=== PATIENT | male | born 1995 | race American Indian/Alaskan Native ===

== ENCOUNTER 2018-10-25 18:01 | Emergency (ER) | payer OTHER ==
--- NOTE | 2018-10-25 18:23 | ED PDOC ---
Arrival/HPI - General Chief Complaint: Seizure Time Seen by Provider: 10/25/18 18:05 Historian: Patient - History of Present Illness Narrative History of Present Illness (Text): 10/25/18 18:05 Sumit Loja is a 23 year old male, with a past medical history of epilepsy (on Keppra), who presents to the emergency department s/p seizure today. Pt recently returned home from follow-up with [facility] before onset of seizure; pt was found on the ground and sustained abrasions to nose and left back. Pt AAO x 3 but is amnesic for event. Patient denies chest pain, shortness of breath, headache, nausea, vomiting, diarrhea, fever, chills, cough, visual changes, tongue biting, bowel/bladder incontinence or head injury. Time/Duration: Other (today) Symptom Onset: Sudden Symptom Course: Resolved Activities at Onset: Light Context: Home Past Medical History - Provider Review Nursing Documentation Reviewed: Yes - Neurological Hx Seizures: Yes - Psychiatric Hx Substance Use: Yes - Anesthesia Hx Anesthesia: No Hx Anesthesia Reactions: No Hx Malignant Hyperthermia: No Family/Social History - Physician Review Nursing Documentation Reviewed: Yes Family/Social History: No Known Family HX Smoking Status: Never Smoked Hx Alcohol Use: No Hx Substance Use: Yes Substance used: marijuana Allergies/Home Meds Allergies/Adverse Reactions: Allergies No Known Allergies Allergy (Verified 10/25/18 18:11) Review of Systems - Physician Review All systems were reviewed & negative as marked: Yes - Review of Systems Constitutional: absent: Fevers, Other (chills) Eyes: absent: Vision Changes Respiratory: absent: SOB, Cough Gastrointestinal: absent: Abdominal Pain, Diarrhea, Nausea, Vomiting, Other (bowel incontience) Genitourinary Male: absent: Other (bladder incontinence) Neurological: Seizure (no tongue bite). absent: Headache Physical Exam - Systems Exam Head: Present: Atraumatic, Normocephalic Pupils: Present: PERRL Extroacular Muscles: Present: EOMI Conjunctiva: Present: Normal Mouth: Present: Moist Mucous Membranes Nose (External): Present: Abrasion (bridge of nose w/ swelling) Neck: No: MIDLINE TENDERNESS Respiratory/Chest: Present: Clear to Auscultation, Good Air Exchange. No: Respiratory Distress, Accessory Muscle Use, Wheezes, Rales, Rhonchi Cardiovascular: Present: Regular Rate and Rhythm, Normal S1, S2. No: Murmurs, Rub, Gallop Abdomen: Present: Normal Bowel Sounds. No: Tenderness, Distention, Peritoneal Signs, Rebound, Guarding Back: Present: Normal Inspection Upper Extremity: Present: Normal Inspection, Neurovascularly Intact. No: Cyanosis, Edema Lower Extremity: Present: Normal Inspection, Neurovascularly Intact. No: Edema Neurological: Present: GCS=15, CN II-XII Intact, Speech Normal, Motor Func Grossly Intact Skin: Present: Warm, Dry, Normal Color. No: Rashes Psychiatric: Present: Alert, Oriented x 3, Normal Insight, Normal Concentration Medical Decision Making ED Course and Treatment: 10/25/18 18:05 Impression: Pt is a 23 year old male, with a past medical history of epilepsy, who presents to the emergency department s/p seizure earlier today. Differential Diagnosis included but are not limited to: Seizure disorder Plan: -- CT Head w/o Contrast -- CT Maxillofacial w/o Contrast -- EKG -- Reassess and disposition Prior Visits: Notes and results from previous visits were reviewed. Progress Notes: 10/25/18 18:29 Reviewed EKG, shows: Sinus Tachycardia at 104 BPM. RAD. Sign out to Dr Kimbrough at 7pm pending labs, ct head and ct MF. - EKG Interpretation Interpreted by ED Physician: Yes Type: 12 lead EKG - Scribe Statement The provider has reviewed the documentation as recorded by the Scribe Romulo Duran All medical record entries made by the Scribe were at my direction and personally dictated by me. I have reviewed the chart and agree that the record accurately reflects my personal performance of the history, physical exam, medical decision making, and the department course for this patient. I have also personally directed, reviewed, and agree with the discharge instructions and disposition. Disposition/Present on Arrival - Present on Arrival Any Indicators Present on Arrival: No History of DVT/PE: No History of Uncontrolled Diabetes: No Urinary Catheter: No History of Decub. Ulcer: No History Surgical Site Infection Following: None - Disposition Have Diagnosis and Disposition been Completed?: Yes Diagnosis: Seizure, Abrasion Disposition Time: 19:00 Condition: GOOD Forms: [employer] (Greek)
[2018-10-25 18:34] VITALS: TEMP 98.2
[2018-10-25] MEDS ORDERED: TDAP Vaccine 0.5 mL Syr IM ONE (18:50)
[2018-10-25 19:02] LABS: BASO # 0.02 K/mm3 (0.0-2.0); BASO % 0.4 % (0.0-3.0); EOS # 0.7 (0.0-0.7); EOS % 15.3 % (1.5-5.0); HEMOGLOBIN 13.8 g/dL (14.0-18.0); LYMPH # 1.2 (1.2-3.4); LYMPH % 27.4 % (22.0-35.0); MEAN CELL VOLUME 91.4 fl (80.0-105.0); MEAN CORPUSCULAR HEMOGLOBIN 29.8 pg (25.0-35.0); MEAN CORPUSCULAR HGB CONC 32.6 g/dl (31.0-37.0); MEAN PLATELET VOLUME 10.5 fl (7.0-11.0); MONO # 0.3 (0.1-0.6); MONO % 6.9 % (1.0-6.0); RBC 4.63 10^6/uL (3.5-6.1); RED CELL DISTRIBUTION WIDTH 12.8 % (11.5-14.5); WHITE BLOOD COUNT 4.5 10^3/uL (4.5-11.0)
[2018-10-25 19:13] LABS: ALB/GLOB RATIO 1.4 (1.1-1.8); ALBUMIN 4.4 g/dL (3.0-4.8); BLOOD UREA NITROGEN 10 mg/dL (7-21); CALCIUM 9.3 mg/dL (8.4-10.5); GFR NON-AFRICAN AMERICAN > 60
--- NOTE | 2018-10-25 19:26 | CARD ---
APPROVED REPORT Date of service: 10/25/2018 EKG Measurement Heart [id number] <Conclusion> Sinus tachycardia Rightward axis ST elevation, probably due to early repolarization Borderline ECG
[2018-10-25 19:33] LABS: ALT/SGPT 26 U/L (7-56); AST/SGOT 31 U/L (17-59)
--- NOTE | 2018-10-25 19:36 | ED PDOC ---
Physical Exam Vital Signs Reviewed: Yes Vital Signs Temp Pulse Resp BP Pulse Ox 10/25/18 18:34 98.2 F 79 18 128/77 98 Temperature: Afebrile Blood Pressure: Normal Pulse: Regular Respiratory Rate: Normal Appearance: Positive for: Well-Appearing, Non-Toxic, Comfortable Pain Distress: None Mental Status: Positive for: Alert and Oriented X 3 Finger Stick Blood Glucose: 75 Medical Decision Making ED Course and Treatment: 10/25/18 19:35 Patient signed out to me by Dr. Barbosa, pending CT Head and CT Maxillofacial. Patient reports he missed a few doses of his Keppra and resulted in having a seizure after seeing his neurologist today. Patient notes also experiencing pain to upper back region from abrasion that is currently not actively bleeding. Notes also abrasion to bridge of nose, no active bleeding. 10/25/18 21:14 patient is awake and alert and stable for discharge in the company of family. case discussed with dr. nevarez and recommends continuing current dose of keppra. - Lab Interpretations Lab Results: Total Bilirubin 0.4 mg/dL (0.2-1.3) 10/25/18 18:26 AST 31 U/L (17-59) 10/25/18 18:26 ALT 26 U/L (7-56) 10/25/18 18:26 Alkaline Phosphatase 85 U/L (38-126) 10/25/18 18:26 Total Protein 7.6 g/dL (5.8-8.3) 10/25/18 18:26 Albumin 4.4 g/dL (3.0-4.8) 10/25/18 18:26 Globulin 3.2 gm/dL 10/25/18 18:26 Albumin/Globulin Ratio 1.4 (1.1-1.8) 10/25/18 18:26 - RAD Interpretation Narrative RAD Interpretations (Text): 10/25/2018 20:[address] IMPRESSION: No acute intracranial abnormality. Dictator: Romulo Simpson M.D. 10/25/2018 20:[address] IMPRESSION: Sinusitis. Unremarkable maxillofacial CT otherwise. Dictator: Romulo Simpson M.D. Radiology Orders: 10/25/18 18:16 HEAD W/O CONTRAST [CT] Stat 10/25/18 18:17 MAXILLOFACIAL W/O CONTRAST [CT] Stat - Medication Orders Current Medication Orders: Discontinued Medications Tetanus/Reduced Diphtheria/Acell Pertussis (Boostrix Vaccine Inj) 0.5 ml IM .ONCE ONE Stop: 10/25/18 18:51 - Scribe Statement The provider has reviewed the documentation as recorded by the Scribe Romulo Duran All medical record entries made by the Scribe were at my direction and personally dictated by me. I have reviewed the chart and agree that the record accurately reflects my personal performance of the history, physical exam, medical decision making, and the department course for this patient. I have also personally directed, reviewed, and agree with the discharge instructions and disposition. Disposition/Present on Arrival - Present on Arrival Any Indicators Present on Arrival: No History of DVT/PE: No History of Uncontrolled Diabetes: No Urinary Catheter: No History of Decub. Ulcer: No History Surgical Site Infection Following: None - Disposition Have Diagnosis and Disposition been Completed?: Yes Diagnosis: Abrasion, Breakthrough seizure, Head injury Disposition: HOME/ ROUTINE Disposition Time: 21:15 Patient Plan: Discharge Patient Problems: Current Active Problems Problem Status Onset Seizure Acute Abrasion Acute Condition: STABLE Discharge Instructions (ExitCare): Skin Abrasions, Closed Head Injury (DC) Additional Instructions: follow up with your neurologist. call to make a follow up appointment. please do not miss any doses of your seizure medication. Referrals: Zain Nevarez MD [Staff Provider] - Follow up with primary Forms: [employer] (Slovak), WORK NOTE
[2018-10-25] MEDS ORDERED: Bacitracin 500 Units/gm Oint Foilpak UD TOP STA (20:04)
[2018-10-25 21:46] VITALS: BP 123/71; PULSE 71; RESP 16; O2SAT 99
--- NOTE | 2018-10-26 09:12 | CT ---
Date of service: 10/25/2018 PROCEDURE: CT HEAD WITHOUT CONTRAST. HISTORY: r/o bleed COMPARISON: None available. TECHNIQUE: Axial computed tomography images were obtained through the head/brain without intravenous contrast. Radiation dose: Total exam DLP = 1373.69 mGy-cm. This CT exam was performed using one or more of the following dose reduction techniques: Automated exposure control, adjustment of the mA and/or kV according to patient size, and/or use of iterative reconstruction technique. FINDINGS: HEMORRHAGE: No intracranial hemorrhage. BRAIN: No mass effect or edema. No atrophy or chronic microvascular ischemic changes. VENTRICLES: Unremarkable. No hydrocephalus. CALVARIUM: Unremarkable. PARANASAL SINUSES: Unremarkable as visualized. No significant inflammatory changes. MASTOID AIR CELLS: Unremarkable as visualized. No inflammatory changes. OTHER FINDINGS: The report concurs with the preliminary [facility] report IMPRESSION: Normal CT of the Head.
--- NOTE | 2018-10-26 09:16 | CT ---
Date of service: 10/25/2018 PROCEDURE: CT MAXILLOFACIAL BONES WITHOUT CONTRAST HISTORY: r/o fx COMPARISON: None available. TECHNIQUE: Contiguous axial CT images of the maxillofacial bones were obtained. Coronal and sagittal reformats were generated. Radiation dose: Total exam DLP = 821.77 mGy-cm. This CT exam was performed using one or more of the following dose reduction techniques: Automated exposure control, adjustment of the mA and/or kV according to patient size, and/or use of iterative reconstruction technique. FINDINGS: NASAL BONES: Unremarkable. ORBITS: Unremarkable. PARANASAL SINUSES/ MASTOIDS: Clear. MAXILLA: Unremarkable. MANDIBLE/ TEMPOROMANDIBULAR JOINTS: Unremarkable. SKULL BASE: Unremarkable. TEMPORAL BONES: Middle ears and mastoid grossly unremarkable. OTHER FINDINGS: The report concurs with the preliminary [facility] report IMPRESSION: Unremarkable non contrast enhanced CT of the maxillofacial bones.
== END 2018-10-25 21:40 | disposition home or self-care (01) ==
LOC: ED 18:01 → MERGE 18:01 → ED 21:40
DX: G40.909 Epilepsy, unspecified, not intractable, without status epilepticus (principal); S09.90XA Unspecified injury of head, initial encounter; S00.31XA Abrasion of nose, initial encounter; X58.XXXA Exposure to other specified factors, initial encounter; Z23 Encounter for immunization
CPT/HCPCS: 70450; 70486; 80053; 80320; 83735; 85025; 90471; 90715; 93005; 96374; 99285; J1953